=== PATIENT | male | born 1990 | race American Indian/Alaskan Native ===

== ENCOUNTER 2021-01-23 12:46 | Outpatient (CLI) | payer BC ==
[2021-01-23 13:42] LABS: Alanine Aminotransferase 13 units/L (7-56); Albumin 4.5 g/dL (3.9-5); BUN/Creatinine Ratio 29; Blood Urea Nitrogen 26 mg/dL (9-20); Calcium 9.4 mg/dL (8.4-10.2); Hemolysis Index 9
[2021-01-23 18:26] LABS: Erythrocyte Sedimentation Rate 1 mm/Hr (0-20)
[2021-01-23 19:25] LABS: Basophils % (Auto) 0.3 % (0.0-1.8); Eosinophils # (Auto) 0.1 K/mm3 (0.0-0.4); Eosinophils % (Auto) 1.1 % (0.0-4.3); Hematocrit 46.8 % (35.5-45.6); Hemoglobin 15.2 gm/dl (11.8-15.2); Lymphocytes # (Auto) 2.4 K/mm3 (1.2-5.4); Lymphocytes % (Auto) 25.1 % (13.4-35.0); Mean Corpuscular HGB Conc 33 % (32-34); Mean Corpuscular Volume 89 fl (84-94); Monocytes # (Auto) 0.7 K/mm3 (0.0-0.8); Monocytes % (Auto) 7.5 % (0.0-7.3); Platelet Count 673 K/mm3 (140-440); Red Blood Count 5.24 M/mm3 (3.65-5.03); Red Cell Distribution Width 12.8 % (13.2-15.2)
[2021-01-27 12:44] LABS: Vitamin D, 25-OH, D2 <4 ng/mL
[2021-01-27 16:12] LABS: Albumin 4.3 g/dL (3.8-4.8); Gamma Globulin 1.9 g/dL (0.8-1.7)
[2021-01-28 12:38] LABS: ANA Screen, IFA Negative (Negative)
[2021-02-09 11:01] LABS: HIV-1 Antibody Differentiation SEE SCANNED RESULT; HIV-2 Antibody Differentiation SEE SCANNED RESULT
== END 2021-01-23 12:47 | disposition home or self-care (01) ==
LOC: LAB 12:46
PROVIDERS: ATTEND Specialist
DX: G65.1 Sequelae of other inflammatory polyneuropathy (principal); G61.9 Inflammatory polyneuropathy, unspecified
CPT/HCPCS: 36415; 80053; 82306; 82607; 82747; 83921; 84165; 84443; 85025; 85652; 86038; 86225; 86235; 86334; 86689